=== PATIENT | female | born 1995 | race Two or more races ===

== ENCOUNTER → 2019-08-02 | Outpatient (CLI) | payer OTHER | END | disposition home or self-care (01) | LOC: PRENATAL 09:42 | DX: O35.3XX0 Maternal care for (suspected) damage to fetus from viral disease in mother, not applicable or unspecified (principal); O34.211 Maternal care for low transverse scar from previous cesarean delivery ==

== ENCOUNTER 2019-08-23 20:56 | Outpatient (CLI) | payer OTHER ==
[2019-08-23] MEDS ORDERED: PRENATAL TABLE1 EAC1 PO (21:43)
== END 2019-08-24 17:23 | disposition home or self-care (01) ==
LOC: OBS/DEL 20:56
DX: O26.842 Uterine size-date discrepancy, second trimester (principal); O26.852 Spotting complicating pregnancy, second trimester

== ENCOUNTER → 2019-12-02 | Outpatient (CLI) | payer OTHER ==
[~2019-12-02] MED LIST: PRENATAL TABLE1 EAC1 PO
== END | disposition home or self-care (01) ==
LOC: PRENATAL 08:00
DX: O36.5931 Maternal care for other known or suspected poor fetal growth, third trimester, fetus 1 (principal); O36.8131 Decreased fetal movements, third trimester, fetus 1; O34.219 Maternal care for unspecified type scar from previous cesarean delivery; O98.913 Unspecified maternal infectious and parasitic disease complicating pregnancy, third trimester; Z3A.36 36 weeks gestation of pregnancy; O65.5 Obstructed labor due to abnormality of maternal pelvic organs

== ENCOUNTER 2019-12-14 18:29 | Inpatient (IN) | payer OTHER ==
[~2019-12-14] VITALS: Ht 165.1 cm; Wt 2.7 kg
== END 2019-12-18 16:12 | disposition home or self-care (01) | DRG 784 ==
LOC: LDR 18:29 → OB/GYN 12-15 22:12
PROVIDERS: ADMIT Obstetrics & Gynecology
PROC: 0UB70ZZ Excision of Bilateral Fallopian Tubes, Open Approach (ICD-10-PCS; 2019-12-15)
PROC: 4A1HXFZ Monitoring of Products of Conception, Cardiac Rhythm, External Approach (ICD-10-PCS; 2019-12-15)
PROC: 4A033R1 Measurement of Arterial Saturation, Peripheral, Percutaneous Approach (ICD-10-PCS; 2019-12-15)
PROC: 10D00Z1 Extraction of Products of Conception, Low, Open Approach (ICD-10-PCS; principal; 2019-12-15 19:00)
DX: O13.4 Gestational [pregnancy-induced] hypertension without significant proteinuria, complicating childbirth (principal); O41.03X0 Oligohydramnios, third trimester, not applicable or unspecified; O34.211 Maternal care for low transverse scar from previous cesarean delivery; Z3A.38 38 weeks gestation of pregnancy; Z37.0 Single live birth; O36.5930 Maternal care for other known or suspected poor fetal growth, third trimester, not applicable or unspecified; Z30.2 Encounter for sterilization